=== PATIENT | male | born 1985 | race Caucasian/White ===

== ENCOUNTER 2024-03-07 08:12 | Emergency (ER) | payer OTHER ==
[~2024-03-07] VITALS: Ht 175.3 cm; Wt 90.7 kg
[2024-03-07] MEDS ORDERED: ACETAMINOPHEN ES 500 MG TABLET ONE (09:49)
[2024-03-07] MEDS: ACETAMINOPHEN ES 500 MG TABLET PO ONE ×2 (09:56)
[2024-03-07] MEDS ORDERED: IBUP-1955 PO (10:03)
[2024-03-07 10:12] VITALS: BP 140/80; TEMP 97.8; O2SAT 97
== END 2024-03-07 10:14 | disposition home or self-care (01) ==
LOC: ER 08:22
DX: S00.81XA Abrasion of other part of head, initial encounter (principal); S09.92XA Unspecified injury of nose, initial encounter; H11.32 Conjunctival hemorrhage, left eye; R04.0 Epistaxis; Y04.0XXA Assault by unarmed brawl or fight, initial encounter; Y93.89 Activity, other specified; Y92.89 Other specified places as the place of occurrence of the external cause; Y99.8 Other external cause status
CPT/HCPCS: 70450-TC; 70486-TC; 72125-TC